=== PATIENT | male | born 1950 | race African-American/Black ===

== ENCOUNTER 2016-04-21 15:22 | Emergency (ER) | payer OTHER ==
[~2016-04-21] VITALS: Ht 165.1 cm; Wt 94.8 kg
[~2016-04-21 15:22] MED LIST: ADVIL200 MG PO; ASPIR-LOW81 MG PO; AUGMENTIN875 MG PO; B-12500 MC1 SL; CIPRO500 MG PO; FIORICET,ESG1 TABLET PO; FISH OIL 1,0001 EAC7 PO; FLAGYL500 MG PO; IBUPROFEN400 MG PO; LISINOPRIL10 MG PO; LISINOPRIL20 MG PO; MEDROL DOSEPAK4 MG PO; NAPROSYN500 MG PO; NEXIUM20 MG PO; NICOTINE PATCH1 EAC2 TD; OMEPRAZOLE20 M2 PO; POTASSIUM GLUCO2 MEQ PO; PRINIVIL20 MG PO; PROAIR HFA8.5 GM IH; ULTRAM50 MG PO; ZOCOR10 MG PO; ZOFRAN ODT4 MG PO; ZOFRAN4 MG PO
[2016-04-21 16:30] LABS: HEMATOCRIT 38.6 % (38.0-50.0); MCH 25.9 PG (29.0-34.0); MCV 69.9 FL (86-99); PLATELET COUNT 191 K/uL (156-360); RBC DIS.WIDTH-CV 17.5 % (11.8-14.6); RBC DIS.WIDTH-SD 43.8 % (39-53); RED BLOOD COUNT 5.52 M/uL (4.00-5.50); WHITE BLOOD COUNT 7.9 K/uL (4.1-10.2)
[2016-04-21 16:32] LABS: CHLORIDE 110 mEq/L (99-109); POTASSIUM 4.4 mEq/L (3.7-5.4); SODIUM 139 mEq/L (136-147)
[2016-04-21 16:34] LABS: GLUCOSE 123 mg/dL (70-99)
[2016-04-21 16:36] LABS: ANION GAP 7 MEQ/L (2-14); TOTAL BILIRUBIN 0.8 mg/dL (0.0-1.0)
[2016-04-21 16:38] LABS: ALKALINE PHOSPHATASE 105 IU/L (3-129); GFR ESTIMATE (CALCULATED) > 59 mL/min/
[2016-04-21 16:39] LABS: UREA NITROGEN (BUN) 15 mg/dL (9-23)
[2016-04-21 18:13] LABS: BILIRUBIN NEGATIVE; BLOOD NEGATIVE; COLOR YELLOW ((YELLOW)); GLUCOSE (STRIP) NEGATIVE; KETONES NEGATIVE; LEUKOCYTES NEGATIVE; NITRITE NEGATIVE; PROTEIN (STRIP) 30; SPECIFIC GRAVITY 1.026 (1.000-1.030); UROBILINOGEN 0.2 MG/DL (0.2-1.0)
[2016-04-21 18:14] LABS: ADD MIUA? NO; UCUL ADDED? NO
[2016-04-21 21:17] VITALS: BP 144/79
== END 2016-04-21 21:20 | disposition home or self-care (01) ==
LOC: EME 15:22
DX: N50.3 Cyst of epididymis (principal); K80.20 Calculus of gallbladder without cholecystitis without obstruction; I72.3 Aneurysm of iliac artery; J44.9 Chronic obstructive pulmonary disease, unspecified; E78.5 Hyperlipidemia, unspecified; I10 Essential (primary) hypertension; F17.200 Nicotine dependence, unspecified, uncomplicated
CPT/HCPCS: 74177; 76870; 80053; 81003; 85027; 99281; 99284; J7030

== ENCOUNTER 2016-04-24 17:41 | Emergency (ER) | payer OTHER ==
[~2016-04-24] VITALS: Ht 165.1 cm; Wt 94.8 kg
[2016-04-24 19:13] LABS: CHLORIDE 111 mEq/L (99-109); POTASSIUM 4.5 mEq/L (3.7-5.4); SODIUM 141 mEq/L (136-147)
[2016-04-24 19:16] LABS: GLUCOSE 99 mg/dL (70-99)
[2016-04-24 19:17] LABS: ANION GAP 9 MEQ/L (2-14)
[2016-04-24 19:18] LABS: TOTAL BILIRUBIN 0.8 mg/dL (0.0-1.0)
[2016-04-24 19:19] LABS: ALKALINE PHOSPHATASE 106 IU/L (3-129); GFR ESTIMATE (CALCULATED) > 59 mL/min/
[2016-04-24 19:20] LABS: UREA NITROGEN (BUN) 15 mg/dL (9-23)
[2016-04-24 19:39] LABS: MEAN PLAT.VOLUME 9.7 uM^3 (9.0-12.4); PLATELET COUNT 160 K/uL (156-360)
[2016-04-24 19:57] LABS: ADD MIUA? YES; BILIRUBIN NEGATIVE; BLOOD TRACE; COLOR YELLOW ((YELLOW)); GLUCOSE (STRIP) NEGATIVE; KETONES NEGATIVE; LEUKOCYTES NEGATIVE; NITRITE NEGATIVE; PROTEIN (STRIP) NEGATIVE; SPECIFIC GRAVITY 1.025 (1.000-1.030); UROBILINOGEN 0.2 MG/DL (0.2-1.0)
[2016-04-24 20:09] LABS: LIPASE 42 U/L (1.0-51.0)
[2016-04-24 20:14] LABS: TROP-I INTERPRETATION NEGATIVE; TROPONIN-I < 0.01 ng/mL (0.0-0.30)
[2016-04-24 20:19] LABS: BACTERIA NONE SEEN /HPF; CASTS NONE SEEN /LPF; CRYSTALS NONE SEEN; EPITHELIAL CELLS RARE /HPF; MUCUS NONE SEEN /LPF; PATHOLOGICAL CAST NONE SEEN; RED BLOOD CELLS 0-5 /HPF (0-5); SMALL ROUND CELL NONE SEEN; UCUL ADDED? NO; YEAST-LIKE CELL NONE SEEN
[2016-04-24 21:10] LABS: HEMATOCRIT 38.9 % (38.0-50.0); MCH 26.4 PG (29.0-34.0); MCHC 36.8 G/DL (30.0-36.0); MCV 71.9 FL (86-99); RBC DIS.WIDTH-CV 17.5 % (11.8-14.6); RBC DIS.WIDTH-SD 43.5 % (39-53); RED BLOOD COUNT 5.42 M/uL (4.00-5.50); WHITE BLOOD COUNT 8.3 K/uL (4.1-10.2)
[2016-04-24] MEDS ORDERED: CARAFATE1 GM PO (21:29)
[2016-04-24 21:42] VITALS: BP 145/89
== END 2016-04-24 22:03 | disposition home or self-care (01) ==
LOC: EME 17:41
DX: R10.9 Unspecified abdominal pain (principal); I10 Essential (primary) hypertension; E78.5 Hyperlipidemia, unspecified
CPT/HCPCS: 80053; 81003; 83690; 84484; 85027; 93005; 99281; 99284

== ENCOUNTER 2016-04-26 21:04 | Emergency (ER) | payer OTHER ==
[~2016-04-26] VITALS: Ht 165.1 cm; Wt 95.2 kg
[~2016-04-26 21:04] MED LIST changes: +CARAFATE1 GM PO
[2016-04-26 22:20] LABS: BASOPHIL COUNT 0.1 K/uL (0-0.1); EOSINOPHIL (%) 1.5 % (0-5); EOSINOPHIL COUNT 0.1 K/uL (0-0.3); IMMATURE GRANULOCYTE (%) 0.1 % (0.0-0.7); IMMATURE GRANULOCYTE COUNT 0.1 K/uL; LYMPHOCYTE COUNT 3.4 K/uL (1.0-2.8); MONOCYTE (%) 5.9 % (3-12); MONOCYTE COUNT 0.5 K/uL (0-0.8); NEUTROPHIL (%) 47.8 % (45-76); NEUTROPHIL COUNT 3.7 K/uL (1.8-6.4)
[2016-04-26 22:30] LABS: CHLORIDE 109 mEq/L (99-109); POTASSIUM 4.1 mEq/L (3.7-5.4); SODIUM 139 mEq/L (136-147)
[2016-04-26 22:33] LABS: GLUCOSE 103 mg/dL (70-99)
[2016-04-26 22:34] LABS: ANION GAP 9 MEQ/L (2-14); TOTAL BILIRUBIN 0.9 mg/dL (0.0-1.0)
[2016-04-26 22:36] LABS: ALKALINE PHOSPHATASE 105 IU/L (3-129); GFR ESTIMATE (CALCULATED) > 59 mL/min/
[2016-04-26 22:37] LABS: UREA NITROGEN (BUN) 13 mg/dL (9-23)
[2016-04-26 22:42] LABS: TROP-I INTERPRETATION NEGATIVE; TROPONIN-I < 0.01 ng/mL (0.0-0.30)
[2016-04-26 22:49] LABS: NRBC (%) 0.9 /100 WBC (0-0)
[2016-04-26 22:53] LABS: HEMATOCRIT 38.2 % (38.0-50.0); MCH 26.6 PG (29.0-34.0); MCHC 36.9 G/DL (30.0-36.0); MCV 71.9 FL (86-99); RBC DIS.WIDTH-CV 17.5 % (11.8-14.6); RBC DIS.WIDTH-SD 45.8 % (39-53); RED BLOOD COUNT 5.31 M/uL (4.00-5.50); WHITE BLOOD COUNT 7.5 K/uL (4.1-10.2)
[2016-04-26 23:34] LABS: MEAN PLAT.VOLUME 10.5 uM^3 (9.0-12.4); PLAT.SUFFICIENCY ADEQUATE; PLATELET COUNT 183 K/uL (156-360)
[2016-04-26] MEDS ORDERED: ZITHROMAX Z-PA250 MG PO (23:39)
[2016-04-26 23:53] VITALS: BP 127/79
== END 2016-04-26 23:54 | disposition home or self-care (01) ==
LOC: EME 21:04
PROVIDERS: Emergency Medicine
DX: J32.9 Chronic sinusitis, unspecified (principal); J44.9 Chronic obstructive pulmonary disease, unspecified; E78.5 Hyperlipidemia, unspecified; I10 Essential (primary) hypertension; F17.200 Nicotine dependence, unspecified, uncomplicated
CPT/HCPCS: 70450; 80053; 84484; 85025; 93005; J0780; J1200; J7030

== ENCOUNTER 2016-06-21 18:40 | Emergency (ER) | payer OTHER ==
[~2016-06-21] VITALS: Ht 165.1 cm; Wt 95.8 kg
[~2016-06-21 18:40] MED LIST changes: +ZITHROMAX Z-PA250 MG PO
[2016-06-21 19:25] LABS: CHLORIDE 108 mEq/L (99-109); POTASSIUM 4.1 mEq/L (3.7-5.4); SODIUM 137 mEq/L (136-147)
[2016-06-21 19:27] LABS: GLUCOSE 95 mg/dL (70-99)
[2016-06-21 19:28] LABS: ANION GAP 8 MEQ/L (2-14)
[2016-06-21 19:29] LABS: TOTAL BILIRUBIN 0.8 mg/dL (0.0-1.0)
[2016-06-21 19:30] LABS: ALKALINE PHOSPHATASE 110 IU/L (3-129)
[2016-06-21 19:31] LABS: GFR ESTIMATE (CALCULATED) > 59 mL/min/
[2016-06-21 19:32] LABS: DIRECT BILIRUBIN 0.3 mg/dL (0.0-0.3); UREA NITROGEN (BUN) 14 mg/dL (9-23)
[2016-06-21 19:33] LABS: HEMATOCRIT 39.5 % (38.0-50.0); MCH 25.8 PG (29.0-34.0); MCHC 35.4 G/DL (30.0-36.0); MCV 72.7 FL (86-99); MEAN PLAT.VOLUME 9.4 uM^3 (9.0-12.4); NRBC (%) 1.2 /100 WBC (0-0); PLATELET COUNT 205 K/uL (156-360); RBC DIS.WIDTH-CV 17.4 % (11.8-14.6); RBC DIS.WIDTH-SD 44.5 % (39-53); RED BLOOD COUNT 5.43 M/uL (4.00-5.50); WHITE BLOOD COUNT 8.9 K/uL (4.1-10.2)
[2016-06-21 19:34] LABS: LIPASE 33 U/L (1.0-51.0)
[2016-06-21 19:35] LABS: TROP-I INTERPRETATION NEGATIVE; TROPONIN-I < 0.01 ng/mL (0.0-0.30)
[2016-06-21 21:42] LABS: TROP-I INTERPRETATION NEGATIVE; TROPONIN-I < 0.01 ng/mL (0.0-0.30)
[2016-06-21 22:49] VITALS: BP 126/67
== END 2016-06-21 22:50 | disposition home or self-care (01) ==
LOC: EME 18:40
PROVIDERS: Physician Assistant
DX: R10.13 Epigastric pain (principal); K80.50 Calculus of bile duct without cholangitis or cholecystitis without obstruction; R05 Cough; I10 Essential (primary) hypertension; E78.5 Hyperlipidemia, unspecified; F17.200 Nicotine dependence, unspecified, uncomplicated
CPT/HCPCS: 71020; 80048; 80076; 83690; 84484; 85027; 93005; 99281; 99284

== ENCOUNTER 2016-08-21 20:10 | Emergency (ER) | payer OTHER, MEDICARE ==
[~2016-08-21] VITALS: Ht 165.1 cm; Wt 96.8 kg
[2016-08-21 21:06] LABS: CHLORIDE 107 mEq/L (99-109); POTASSIUM 4.1 mEq/L (3.7-5.4)
[2016-08-21 21:07] LABS: SODIUM 138 mEq/L (136-147)
[2016-08-21 21:09] LABS: GLUCOSE 164 mg/dL (70-99)
[2016-08-21 21:10] LABS: ANION GAP 12 MEQ/L (2-14)
[2016-08-21 21:11] LABS: TOTAL BILIRUBIN 0.6 mg/dL (0.0-1.0)
[2016-08-21 21:12] LABS: ALKALINE PHOSPHATASE 109 IU/L (3-129); GFR ESTIMATE (CALCULATED) > 59 mL/min/
[2016-08-21 21:14] LABS: HEMATOCRIT 39.9 % (38.0-50.0); MCH 25.8 PG (29.0-34.0); MCHC 35.6 G/DL (30.0-36.0); MCV 72.5 FL (86-99); MEAN PLAT.VOLUME 9.8 uM^3 (9.0-12.4); NRBC (%) 1.9 /100 WBC (0-0); PLATELET COUNT 208 K/uL (156-360); RBC DIS.WIDTH-CV 17.7 % (11.8-14.6); UREA NITROGEN (BUN) 15 mg/dL (9-23); WHITE BLOOD COUNT 8.4 K/uL (4.1-10.2)
[2016-08-21 22:01] LABS: ADD MIUA? YES; BILIRUBIN NEGATIVE; BLOOD SMALL; COLOR YELLOW ((YELLOW)); GLUCOSE (STRIP) NEGATIVE; KETONES NEGATIVE; LEUKOCYTES NEGATIVE; NITRITE NEGATIVE; PROTEIN (STRIP) NEGATIVE; SPECIFIC GRAVITY 1.021 (1.000-1.030); UROBILINOGEN 0.2 MG/DL (0.2-1.0)
[2016-08-21 22:22] LABS: BACTERIA RARE /HPF; EPITHELIAL CELLS NONE SEEN /HPF; MUCUS TRACE /LPF; RED BLOOD CELLS 0-5 /HPF (0-5); UCUL ADDED? NO; WHITE BLOOD CELLS 0-5 /HPF (0-5)
[2016-08-22 00:26] VITALS: BP 134/78
== END 2016-08-22 00:28 | disposition home or self-care (01) ==
LOC: EME 20:10
DX: K59.00 Constipation, unspecified (principal); R10.9 Unspecified abdominal pain; E78.5 Hyperlipidemia, unspecified; I10 Essential (primary) hypertension; J44.9 Chronic obstructive pulmonary disease, unspecified; F17.200 Nicotine dependence, unspecified, uncomplicated
CPT/HCPCS: 74177; 80053; 81003; 85027; 93005; 99281; 99284; J7030

== ENCOUNTER 2016-10-29 09:12 | Emergency (ER) | payer OTHER, MEDICARE ==
[~2016-10-29] VITALS: Ht 165.1 cm; Wt 96.5 kg
[2016-10-29 09:52] LABS: EOSINOPHIL (%) 2.6 % (0-5); EOSINOPHIL COUNT 0.2 K/uL (0-0.3); HEMATOCRIT 40.7 % (38.0-50.0); IMMATURE GRANULOCYTE (%) 0.2 % (0.0-0.7); INSTRUMENT ABS NEUTROPHIL CT 3.3 K/uL; INTER. NORMALIZED RATIO 1.1; LYMPHOCYTE COUNT 2.6 K/uL (1.0-2.8); MCH 25.6 PG (29.0-34.0); MCHC 35.1 G/DL (30.0-36.0); MCV 72.9 FL (86-99); MEAN PLAT.VOLUME 9.7 uM^3 (9.0-12.4); MONOCYTE (%) 7.3 % (3-12); MONOCYTE COUNT 0.5 K/uL (0-0.8); NEUTROPHIL (%) 49.7 % (45-76); NEUTROPHIL COUNT 3.3 K/uL (1.8-6.4); NRBC (%) 2.1 /100 WBC (0-0); PLATELET COUNT 170 K/uL (156-360); PROTHROMBIN TIME 12.1 SEC (10.2-12.9); RED BLOOD COUNT 5.58 M/uL (4.00-5.50); WHITE BLOOD COUNT 6.5 K/uL (4.1-10.2)
[2016-10-29 09:55] LABS: CHLORIDE 105 mEq/L (99-109); POTASSIUM 4.2 mEq/L (3.7-5.4); SODIUM 135 mEq/L (136-147)
[2016-10-29 09:56] LABS: GLUCOSE 163 mg/dL (70-99)
[2016-10-29 09:58] LABS: ANION GAP 7 MEQ/L (2-14)
[2016-10-29 10:00] LABS: GFR ESTIMATE (CALCULATED) > 59 mL/min/
[2016-10-29 10:01] LABS: UREA NITROGEN (BUN) 17 mg/dL (9-23)
[2016-10-29] MEDS ORDERED: ZITHROMAX Z-PA250 MG PO (16:14)
[2016-10-29] MEDS ORDERED: PREDNISONE50 MG PO (16:14)
[2016-10-29 16:34] VITALS: BP 140/92
== END 2016-10-29 16:46 | disposition home or self-care (01) ==
LOC: EME 09:12
PROVIDERS: Emergency Medicine
DX: J44.9 Chronic obstructive pulmonary disease, unspecified (principal); R42 Dizziness and giddiness; E78.5 Hyperlipidemia, unspecified; I10 Essential (primary) hypertension; F17.200 Nicotine dependence, unspecified, uncomplicated
CPT/HCPCS: 71020; 71275; 80048; 85025; 85610; 93005; 99281; 99285; J7030

== ENCOUNTER 2016-11-22 20:07 | Emergency (ER) | payer OTHER, MEDICARE ==
[~2016-11-22] VITALS: Ht 165.1 cm; Wt 97.9 kg
[~2016-11-22 20:07] MED LIST changes: +PREDNISONE50 MG PO
[2016-11-22 21:55] VITALS: BP 135/80
== END 2016-11-22 21:55 | disposition home or self-care (01) ==
LOC: EME 20:07
DX: S46.912A Strain of unspecified muscle, fascia and tendon at shoulder and upper arm level, left arm, initial encounter (principal); S16.1XXA Strain of muscle, fascia and tendon at neck level, initial encounter; V49.40XA Driver injured in collision with unspecified motor vehicles in traffic accident, initial encounter; Z88.6 Allergy status to analgesic agent
CPT/HCPCS: 72040; 73030; 99281; 99283

== ENCOUNTER 2017-06-10 10:53 | Emergency (ER) | payer OTHER, MEDICARE ==
[~2017-06-10] VITALS: Ht 165.1 cm; Wt 96.8 kg
[~2017-06-10 10:53] MED LIST changes: +ASPIRIN81 M2 PO; +MECLIZINE HCL25 MG PO; +METOPROLOL SUCC25 MG PO
[2017-06-10 12:08] LABS: CHLORIDE 106 mEq/L (99-109); MCH 26.8 PG (29.0-34.0); MCHC 36.6 G/DL (30.0-36.0); MCV 73.2 FL (86-99); NRBC (%) 1.6 /100 WBC (0-0); PLATELET COUNT 198 K/uL (156-360); POTASSIUM 4.3 mEq/L (3.7-5.4); RBC DIS.WIDTH-CV 17.2 % (11.8-14.6); RBC DIS.WIDTH-SD 44.8 % (39-53); SODIUM 136 mEq/L (136-147); WHITE BLOOD COUNT 8.7 K/uL (4.1-10.2)
[2017-06-10 12:10] LABS: GLUCOSE 165 mg/dL (70-99)
[2017-06-10 12:14] LABS: CREATININE 0.9 mg/dL (0.6-1.3); GFR ESTIMATE (CALCULATED) > 59 mL/min/ (58.99-99999)
[2017-06-10 12:15] LABS: UREA NITROGEN (BUN) 15 mg/dL (9-23)
[2017-06-10 15:45] VITALS: BP 136/82
== END 2017-06-10 16:07 | disposition home or self-care (01) ==
LOC: EME 10:53
DX: R42 Dizziness and giddiness (principal); I10 Essential (primary) hypertension; E78.5 Hyperlipidemia, unspecified; J44.9 Chronic obstructive pulmonary disease, unspecified; G43.909 Migraine, unspecified, not intractable, without status migrainosus; F17.200 Nicotine dependence, unspecified, uncomplicated; Z79.82 Long term (current) use of aspirin; Z86.19 Personal history of other infectious and parasitic diseases; Z87.39 Personal history of other diseases of the musculoskeletal system and connective tissue; Z90.49 Acquired absence of other specified parts of digestive tract; Z88.6 Allergy status to analgesic agent
CPT/HCPCS: 70450; 71046; 80048; 85027; 93005; 99281; 99284